=== PATIENT | male | born 1980 | race Hispanic/Latino ===

== ENCOUNTER 2020-08-27 11:11 | Emergency (ER) | payer SELFPAY ==
--- NOTE | 2020-08-27 11:16 | ED.PDOC ---
History of Present Illness - General Stated Complaint: Difficulty breathing Time Seen by Provider: 08/27/20 11:15 Source: patient Exam Limitations: no limitations - History of Present Illness Initial Comments: Patient complains of shortness of breath for the last 36 hours. He has had a dry cough. Denies fever or chills but complains of malaise. Also complains of a headache. No known exposure to COVID-19. Symptoms began after using electronic cigarette with a new solution he never used before. Patient also reports tightness in the chest. Timing/Duration: other - 3 days Severity: severe Improving Factors: rest Worsening Factors: movement Associated Symptoms: headaches, malaise Allergies/Adverse Reactions: Allergies NO KNOWN ALLERGY Allergy (Verified 08/27/20 11:30) Home Medications: Ambulatory Orders predniSONE 20 mg PO DAILY 5 Days #15 tab 08/27/20 Review of Systems - Review of Systems Constitutional: States: malaise. Denies: fever EENTM: States: no symptoms reported Respiratory: States: see HPI, short of breath, wheezing Cardiology: States: chest pain Gastrointestinal/Abdominal: States: no symptoms reported. Denies: diarrhea, vomiting Genitourinary: States: no symptoms reported Musculoskeletal: States: no symptoms reported Skin: States: no symptoms reported Neurological: States: no symptoms reported Endocrine: States: no symptoms reported Hematologic/Lymphatic: States: no symptoms reported Family Medical History - Family History Mother Family History: Unknown Physical Exam - Physical Exam General Appearance: Alert, Obvious distress - Moderate dyspnea Eye Exam: bilateral normal Ears, Nose, Throat: normal ENT inspection, normal pharynx Neck: non-tender, full range of motion Respiratory: wheezing - Moderate, No rales heard Cardiovascular/Chest: regular rate, rhythm Gastrointestinal/Abdominal: normal bowel sounds, non tender, soft, other - Obese body habitus Back Exam: normal inspection, no CVA tenderness Extremity: normal range of motion 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 08/27/20 11:58 Clear, comfortable supine. 08/27/20 12:07 Tylenol 1 g and prednisone 60 mg given. Metered-dose inhaler dispensed. - Results/Orders Results/Orders: Electrocardiogram: Normal sinus rhythm, 87 a minute, left posterior fascicular block, no other interval changes, no acute STT changes. Nasal swab for rapid COVID-19 test negative Single view chest x-ray did not show any acute abnormalities. Departure - Departure Clinical Impression: Asthma attack Time of Disposition: 12:07 Disposition: Discharge to Home or Self Care Condition: Good Departure Forms: ED Discharge - Pt. Copy, Patient Portal Self Enrollment Instructions: Asthma, Adult (DC) Diet: resume usual diet Prescriptions: predniSONE 20 mg PO DAILY 5 Days #15 tab Home Medications: Ambulatory Orders predniSONE 20 mg PO DAILY 5 Days #15 tab 08/27/20 Additional Instructions: Do not smoke electronic or regular cigarettes.Return for acutely worsening shortness of breath which does not resolve with use of the inhaler. See your doctor for further care of your asthma.
[2020-08-27] MEDS ORDERED: ALBUTEROL INHALER 64 PUFF/8GM INH PRN (11:25)
[2020-08-27 11:33] VITALS: TEMP 97.3
--- NOTE | 2020-08-27 11:47 | RAD ---
Study: Single Frontal Radiograph of the Chest. Indication:Cough, dyspnea Comparison: July 26, 2008 Impression: Heart size normal. Minimal hazy increased density lung bases and right midlung which could reflect atelectasis or pneumonia. Short term follow-up recommended. No pneumothorax. No pleural effusion. No acute osseous abnormality. Electronically signed by: Vitaliy Licona MD 08/27/2020 11:45 AM [facility]
[2020-08-27] MEDS ORDERED: ACETAMINOPHEN 500 MG TAB PO ONE (11:50)
[2020-08-27] MEDS ORDERED: predniSONE 20 MG TAB PO ONE (12:05)
[2020-08-27 12:16] VITALS: BP 130/72; O2SAT 97
== END 2020-08-27 12:15 | disposition home or self-care (01) ==
LOC: ER 11:11
DX: J45.901 Unspecified asthma with (acute) exacerbation (principal); I44.4 Left anterior fascicular block; R51.9 Headache, unspecified; F17.290 Nicotine dependence, other tobacco product, uncomplicated; E66.9 Obesity, unspecified; Z20.822 Contact with and (suspected) exposure to COVID-19; Z68.41 Body mass index [BMI] 40.0-44.9, adult
CPT/HCPCS: 71045; 87635; 93005; 94640; 94760; J7512